=== PATIENT | female | born 1995 | race Caucasian/White ===

== ENCOUNTER → 2019-11-14 | Outpatient (CLI) | payer OTHER ==
[2019-11-14 19:26] LABS: HEMOGLOBIN 10.7 g/dl (12.0-15.5); MEAN CORPUSCULAR HGB CONC 31.5 g/dl (32.0-36.5); MEAN CORPUSCULAR VOLUME 95.2 fl (80.0-96.0); PLATELET COUNT, AUTOMATED 239 10^3/uL (150-450); RED BLOOD COUNT 3.57 10^6/uL (4.00-5.40); WHITE BLOOD COUNT 4.5 10^3/uL (4.0-10.0)
== END ==
LOC: M PLALAB 14:34
PROVIDERS: ATTEND Advanced Practice Midwife
DX: Z34.83 Encounter for supervision of other normal pregnancy, third trimester (principal)

== ENCOUNTER → 2019-12-04 | Outpatient (CLI) | payer OTHER ==
--- NOTE | 2019-12-04 12:19 | REP ---
Clinical: Anatomical evaluation. Comparison: None currently available . Findings: Examination demonstrates a single live intrauterine in cephalic presentation. motion is identified by technologist. Placenta is noted anterior and grade I without evidence for placenta previa or abruption. Amniotic fluid volume is normal. Cervix measures 4.1 cm in length and appears closed. No evidence for nuchal cord. Gestational age by current measurements 28 weeks of 4 days with MANUEL 02/22/2020 . FHR equals 150 beats per minute. Estimated weight 1315 grams ( 50th percentile). Anatomical assessment demonstrates normal structures including facial features, four-chamber heart, diaphragm, stomach, cord insertion/three-vessel cord, kidneys/bladder, and extremities. Impression: 1. Single live intrauterine in cephalic presentation demonstrating normal estimated weight. 2. Normal anatomical findings as described above.
== END ==
LOC: M WHC 11:28
PROVIDERS: ATTEND Advanced Practice Midwife
DX: Z36.2 Encounter for other antenatal screening follow-up (principal); Z3A.28 28 weeks gestation of pregnancy

== ENCOUNTER → 2020-01-14 | Outpatient (REF) | payer OTHER | LOC: M PLALAB 14:26 | PROVIDERS: ATTEND Advanced Practice Midwife | DX: Z34.83 Encounter for supervision of other normal pregnancy, third trimester (principal) ==

== ENCOUNTER 2020-02-08 03:19 | Inpatient (IN) | payer OTHER ==
[2020-02-08] VITALS (22 sets, daily range): BP systolic 94–128; BP diastolic 52–66
[~2020-02-08] VITALS: Ht 154.9 cm; Wt 89.8 kg
[2020-02-08] MEDS ORDERED: PRENTAB9 PO (03:33)
[2020-02-08 08:00] LABS: HEMATOCRIT 33.2 % (36.0-47.0); HEMOGLOBIN 10.5 g/dl (12.0-15.5); MEAN CORPUSCULAR HEMOGLOBIN 27.7 pg (27.0-33.0); MEAN CORPUSCULAR HGB CONC 31.6 g/dl (32.0-36.5); MEAN CORPUSCULAR VOLUME 87.6 fl (80.0-96.0); PLATELET COUNT, AUTOMATED 225 10^3/uL (150-450); RED BLOOD COUNT 3.79 10^6/uL (4.00-5.40); WHITE BLOOD COUNT 4.2 10^3/uL (4.0-10.0)
[2020-02-08] MEDS ORDERED: LACTATED RINGER'S 1000 ML IV STA (11:44)
[2020-02-08] MEDS ORDERED: OXYTOCIN DRIP 30 UNITS in IV 1 EA IV SCH ×2 (11:45→19:56)
[2020-02-08] MEDS ORDERED: LR 1,000 ML IV SCH (12:00)
--- NOTE | 2020-02-08 12:04 | HPEPDOC ---
Obstetrical History & Physical General Date of Admission Feb 08, 2020 at 07:30 Primary Care Physician: BRENDA FU CNM History of Present Illness Patient is a 24-year-old female who is a at 39.6 weeks gestation with an MANUEL of 02/09/20 based off of her first trimester ultrasound. She initiated care in her first trimester in [place] and transferred her care to [place] at [facility]. Her has been uncomplicated. She did have a positive quad screen and a negative NIPT test. She reports regular painful contractions and active movement. She denies leaking of fluid or vaginal bleeding. Chief Complaint: Active Labor Information Provided By: Patient Age: 24 : 2 Term: 1 Pre-term: 0 Abortions: 0 Livin Care Care: Good Care Dating Final EDC: Feb 09, 2020 Final EDC by: 1st trimester (US) EGA at Admission: 39.6 Antepartum Course Height (inches): 61 Pre- weight (lbs.): 152 Admission Weight (lbs.): 197 Change in Weight (lbs.): 45 Past Medical History Past Obstetrical History : Date of Delivery: Apr 07, 2018 Gestation: 39 Type of Delivery: Spontaneous Vaginal Del. Sex of Infant: Female (7 lbs 7 oz.) Complications: No PAPER STRIPPER History: No pertinent history Past Medical History Medical History No current medical history Surgical History: Denies/None Family History Significant Family History: Diabetes, Heart disease, Hypertension, Other (thyroid disease) Social History Marital Status: Family situation: Spouse/partner home Psychosocial History: No pertinent psych hx * Smoker: non-smoker Alcohol: Denies Drugs: denies Abuse Violence Screening Have you been hit/kicked/slapp: No Have you been sexually assault: No Allergies Coded Allergies: No Known Allergies (Unverified , 02/08/20) Medications Scheduled No.137/Iron/Folic Acd ( Vitamin Tablet) 1 Each Tablet, 1 TAB PO DAILY Physical Examination Physical Examination GENERAL: Alert and oriented times three. BREAST: . ABDOMEN: Gravid and non-tender to touch. FETUS: Is vertex (VTX) by sterile vaginal examination (SVE), fetus is vertex (VTX) by George. HEART RATE: Regular rate and rhythm. LUNGS: Clear to auscultation (CTA). EXTREMITIES: No edema. No clonus. Deep tendon reflexes (DTRs) + 2. Vital Signs/I&O Vital Signs Date Time Temp Pulse Resp B/P (MAP) Pulse Ox O2 Delivery O2 Flow Rate FiO2 02/08/20 10:26 81 18 108/54 (72) 02/08/20 07:08 97.8 98 Room Air Laboratory Data 24H LABS Laboratory Tests 2 02/08/20 07:52: Nucleated Red Blood Cells % (auto) 0.0 CBC/BMP Laboratory Tests 02/08/20 07:52 Urine Culture: Other (lactobacillus) Pertinent Laboratoy Data Blood Type: A+ RBC Antibody Screen: Negative HIV: Negative Hepatitis B: Negative Hepatitis C: Negative Rapid Plasma Reagin: Nonreactive Rubella: Immune Chlamydia/Gonorrhea: Negative Group B Streptococcus: Negative Quad Screen Test: Positive Glucose Tolerance Test: 95 Diag/Inter Therapy NIPT low risk normal female Vaginal Examination Dilation: 4 cm Effacement: other (75%) Station: Other (ballotable) Cervical Consistency: Soft Cervical Position: Anterior Presentation: Cephalic presentation Position: Vertex (occiput) Assessment Heart Rate (FHR): 140 Variability: Moderate Accelerations: Positive Decelerations: None Tocometer Contractions: Yes Frequency: irregular Multi-drug resistant Organism: No history of MDRO Assessment/Plan Assessment IUP at 39.6 weeks gestation Category I FHR tracing active labor GBS negative Plan Admit to L&D. OOB ad cecily Diet: regular then switch to clears with IV Pitocin started. Group B Streptococcus (GBS) negative. Labs and intravenous (IV) per unit protocol. Counseled on Pitocin for augmentation of labor (IOL). IV Pitocin to be started and LR to be started at 125 cc/hr. Anesthesia consult per patient's request Lactated Ringers (LR): Bolus 800 mL prior to epidural. Anticipate cervical change and . C-S as appropriate. BRENDA FU CNM Feb 08, 2020 12:04
--- NOTE | 2020-02-08 17:03 | IPNPDOC ---
Obstetrical Progress Note Date of Service Feb 08, 2020 Subjective Patient reports she is feeling her contractions. Objective Vital Signs Date Time Temp Pulse Resp B/P (MAP) Pulse Ox O2 Delivery O2 Flow Rate FiO2 02/08/20 16:22 97.9 76 16 101/56 (71) 02/08/20 07:08 98 Room Air Assessment Heart Rate (FHR): 140 Variability: Moderate Accelerations: Positive Decelerations: None Heart Rate Tracing: Category I Tocometer Contractions: Yes Frequency: regular (1.5 to 4 minutes), other (1.5-4 minutes) Strength: palpated as moderate Sterile Vaginal Examination Dilation: 4 cm (45 cm) Effacement (%): other (75%) Station: -2 Cervical Consistency: Soft Cervical Position: Middle Postion/Presentation: Cephalic presentation (confirmed with bedside ultrasound) Assessment and Plan Age: 24 Status: Reassuring Group B Streptococcus: Negative Anticipate: Vaginal Delivery Additional Comments AROM to a large amount of clear fluid. BRENDA FU CNM Feb 08, 2020 17:03
[2020-02-08] MEDS ORDERED: ACETAMINOPHEN 500 MG TAB PO PRN (20:00)
[2020-02-08] MEDS ORDERED: IBUPROFEN 800 MG TAB PO PRN (20:00)
[2020-02-08] MEDS ORDERED: DIBUCAINE 1% OINTMENT 30GM TOP PRN (20:00)
[2020-02-08] MEDS ORDERED: ACETAMINOPHEN TAB 650MG DOSE (2X325MG) PO PRN (20:00)
[2020-02-08] MEDS ORDERED: IBUPROFEN 600 MG TAB PO PRN (20:00)
[2020-02-08] MEDS ORDERED: METHYLERGONOVINE MALEATE 0.2 MG TAB PO PRN (20:00)
[2020-02-08] MEDS ORDERED: RHOGAM 300 MCG (1500 IU) INJ (J2790) IM SCH (20:00)
[2020-02-08] MEDS ORDERED: MEASLES,MUMPS,RUBELLA VACCINE INJ (MMR-II) (90707) SC SCH (20:00)
[2020-02-08] MEDS ORDERED: DOCUSATE SODIUM 100 MG CAP PO PRN (20:00)
[2020-02-08] MEDS ORDERED: LIDOCAINE 1% MDV 20ML VIAL INFIL ONE (20:15)
--- NOTE | 2020-02-08 20:19 | DNPDOC ---
[facility] Delivery Note Delivery Note DATE OF DELIVERY: 02/08/20 at 1927 PREDELIVERY DIAGNOSIS: 39-6/7 weeks' gestation and labor. POST DELIVERY DIAGNOSIS: Delivered. PROCEDURE: Spontaneous vaginal delivery. CHIROPRACTIC PRACTICE MANAGER: Brenda Jimenes CNM, LEWIS ANESTHESIA: none. ESTIMATED BLOOD LOSS: 350 mL. FINDINGS: 7 pounds 2 ounces; 3240 grams; female infant, Score 9/9. DELIVERY SUMMARY: Patient is a 63-cdup-ixl-female who is now a at 39.6 weeks gestation who presented in active labor. Her labor was augmented with IV Pitocin. She progressed to fully dilated at 1926 and pushed to a living female a t 1926. This was a nurse controlled delivery after the patient came back from urinating. Provider presented when was on maternal abdomen active and crying. The cord was clamped x2 and cut by the provider. The placenta delivered spontaneously and intact at 1932. Uterine hemostasis was achieved via rapid infusion of IV Pitocin and fundal massage. The vagina, perineum, and cervix was inspected and found to have a first degree perineal laceration that was repaired with a 3.[address]-1 using 1% Lidocaine. Mom plans to formula feed and breast feed her . they are naming her Kayla. All counts of instruments and sponges are correct. Both mom and baby are in stable condition. BRENDA JIMENES CNM Feb 08, 2020 20:19
[2020-02-09 06:00] VITALS: BP 119/67
[2020-02-09] MEDS: PRENATAL VITAMINS CHEWABLE TABLET PO SCH (08:21)
--- NOTE | 2020-02-09 11:58 | IPNPDOC ---
Progress Note Date of Service: Feb 09, 2020 Day#: 1 Progress Note SUBJECT: Patient is a 24-year-old female who is day 1 from an uncom plicated vaginal delivery. She had a laceration without complications. She has been ambulating, voiding spontaneously without issue and tolerating regular diet. Breast feeding and formula feeding. OBJECTIVE: VITAL SIGNS: Within normal limits, afebrile. Alert and oriented times three. Breath sounds clear to auscultation. Heart rate: Regular rate and rhythm, no murmurs, rubs or gallops. Abdomen: Fundus firm at U-1. Soft, NTTP. Minimal lochia. ASSESSMENT: Day 1 PLAN: 1. Anticipate discharge to home tomorrow. 2. Tylenol and Motrin for pain. 3. Encourage breast feeding and ambulation. VS, I&O, 24H, Fishbone Vital Signs/I&O Vital Signs Date Time Temp Pulse Resp B/P (MAP) Pulse Ox O2 Delivery O2 Flow Rate FiO2 02/09/20 06:00 98.6 85 17 119/67 (84) 97 Room Air I&O- Last 24 Hours up to 6 AM 02/09/20 06:00 Intake Total 1934 ml Output Total 1250 ml Balance 684 ml Laboratory Data 24H LABS Laboratory Tests 2 02/08/20 12:08: Serology Scanned Report Hepatitis B Testing BRENDA FU CNM Feb 09, 2020 11:58
[2020-02-09 17:56] VITALS: BP 105/57
[2020-02-10 06:10] VITALS: BP 117/59
[2020-02-10] MEDS ORDERED: IBUP80TA PO (07:24)
[2020-02-10] MEDS ORDERED: ACET-683 PO (07:24)
[2020-02-10] MEDS: PRENATAL VITAMINS CHEWABLE TABLET PO SCH (08:42)
== END 2020-02-10 11:00 | disposition home or self-care (01) | DRG 807 ==
LOC: M LDO 03:19 → EEVIPCON 03:19 → M LDI 07:30 → M OBS 21:49
PROVIDERS: ADMIT Advanced Practice Midwife; ATTEND Advanced Practice Midwife
PROC: 10E0XZZ Delivery of Products of Conception, External Approach (ICD-10-PCS; principal; 2020-02-08)
PROC: 10907ZC Drainage of Amniotic Fluid, Therapeutic from Products of Conception, Via Natural or Artificial Opening (ICD-10-PCS; 2020-02-08)
PROC: 0HQ9XZZ Repair Perineum Skin, External Approach (ICD-10-PCS; 2020-02-08)
DX: O70.0 First degree perineal laceration during delivery (principal); Z37.0 Single live birth; Z3A.39 39 weeks gestation of pregnancy

== ENCOUNTER 2020-05-14 10:35 | Day surgery (SDC) | payer OTHER ==
[~2020-05-14 10:35] MED LIST: ACET-683 PO; HYDROmorphone HCL 2 MG/ML 1ML VIAL (J1170) As Ordered ONE; IBUP80TA PO; KETOROLAC 60MG 2ML VIAL As Ordered ONE; LIDOCAINE 2% 100MG/5ML SDV (FOR ANES.) As Ordered ONE; MIDAZOLAM INJ 2MG/2ML VIAL (J2250 PER 1MG) As Ordered ONE; ONDANSETRON 4MG/2ML VIAL As Ordered ONE; PRENTAB9 PO; ROCURONIUM BROMIDE 50 MG/5 ML VIAL As Ordered ONE; dexameTHASONE 4 MG/ML 1ML VIAL (J1100 PER 1MG) As Ordered ONE; fentaNYL 100 MCG/2 ML INJECTION (J3010) As Ordered ONE; propofoL 200 MG/20 ML VIAL As Ordered ONE
[2020-05-14] MEDS ORDERED: BUPIVACAINE HCL 0.25% 10ML VIAL As Ordered ONE (11:15)
[2020-05-14] MEDS ORDERED: SUGAMMADEX SODIUM 500 MG/5 ML VIAL (BRIDION) As Ordered ONE (11:45)
[2020-05-14] MEDS ORDERED: ACETAMINOPHEN 1000MG 100ML IV BTL (OFIRMEV) (J0131 PER 10MG) As Ordered ONE (11:45)
[2020-05-14] MEDS ORDERED: SILVER NITRATE APPLICATOR As Ordered ONE (12:13)
[2020-05-14] MEDS ORDERED: ONDANSETRON 4MG/2ML VIAL ONE (13:44)
[2020-07-04 23:00] LABS: HEMATOCRIT 37.5 % (36.0-47.0); HEMOGLOBIN 11.8 g/dl (12.0-15.5); MEAN CORPUSCULAR HEMOGLOBIN 28.2 pg (27.0-33.0); MEAN CORPUSCULAR HGB CONC 31.5 g/dl (32.0-36.5); MEAN CORPUSCULAR VOLUME 89.7 fl (80.0-96.0); PLATELET COUNT, AUTOMATED 280 10^3/uL (150-450); RED BLOOD COUNT 4.18 10^6/uL (4.00-5.40); WHITE BLOOD COUNT 3.4 10^3/uL (4.0-10.0)
--- NOTE | 2020-07-22 09:23 | RO ---
Date of Operation: 05/14/2020 Pre-op diagnosis: Satisfied parity. Post-op diagnosis: Satisfied parity. Procedure: Laparoscopic bilateral opportunistic salpingectomy. Surgeon: Jovani Odom DO Camelid Fiber Sorter: None. Anesthesia: General endotracheal. Specimens sent to pathology: Bilateral fallopian tubes. Estimated blood loss: 10 mL Fluids replaced: 1.2 liters lactated Ringers. Drains: In-and-out catheter, 50 mL. Complications: None. Preoperative Antibiotics: None indicated. Intraoperative findings: Normal uterus, bilateral adnexa and ovaries. Indication: The patient is 100% satisfied libertarian and she has been counseled on all available control method options. She has elected to proceed with tubal sterilization. Description of Operation: The patient was counseled, consented on the risks, benefits, indications and alternatives of the procedure and informed consent was obtained. She was taken to the operating room with an IV running and placed on the operating table in dorsal supine position. General anesthesia was administered and the airway secured without any difficulty. She was then placed in the dorsal supine, low lithotomy position. She was prepared and draped in normal sterile fashion. A timeout was performed per protocol. The bladder was drained with sterile in-and-out catheter. A sterile speculum was placed with good visualization of the cervix. A single-tooth tenaculum was used to grasp the anterior lip of the cervix and downward traction was applied. A ZUMI uterine manipulator was placed without any difficulty. The single-tooth tenaculum was removed. Attention was turned to the abdomen after a glove switch was performed. 1/4% Marcaine was injected into the umbilicus. An 11 blade was used to create a 5 mm incision in the umbilicus. Through this incision, a Veress needle was placed into the intraperitoneal cavity. Intraperitoneal placement was confirmed with ease of flow of normal saline, positive drop test and negative return on aspiration. The abdomen was insufflated with two liters of gas. The opening pressure was 3 mmHg. The Veress needle was removed. The size 5 mm laparoscopic XL trocar/cannula was introduced into the intraperitoneal cavity without any incidental bleeding or injury. The patient was then placed in steep Trendelenburg. Two additional incisions were made in the left lower abdomen 5 mm each with the 11 blade and through these incisions, the laparoscopic trocar/cannulas were inserted under direct visualization without any difficulty. Attention was first turned to the right fallopian tube. The right fallopian tube was followed out to the fimbriated end and grasped and elevated. The underlying mesosalpinx was sequentially clamped, coagulated and transected using the 5 mm LigaSure device until the level of the cornua was reached and at the level of the cornua, the fallopian tube clamped, coagulated, transected, thus amputating the right fallopian tube. The right fallopian tube was brought through the 8 mm cannula and the specimen was sent to pathology for permanent section. In similar fashion, the left fallopian tube was identified and followed out to the fimbriated end. The left fallopian tube was grasped and elevate. The underlying mesosalpinx was sequentially clamped, coagulated and transected until the level of the cornua was reached. At the level of the cornua, the fallopian tube clamped, coagulated and transected, thus amputating the left fallopian tube. The left fallopian tube was brought through the 8 mm cannula and sent to pathology for permanent section. Left and right surgical sites were inspected and noted to be completely hemostatic. The gas was released from the abdomen. The patient was taken out of Trendelenburg. The cannulas were removed. The skin incisions were closed with 4-0 Monocryl in subcuticular fashion and reinforced with Dermabond. Attention was turned back to the vagina. A sterile speculum was placed. The ZUMI uterine manipulator was removed. There was a small minor laceration on the cervix from the single-tooth tenaculum. A single interrupted stitch using 3-0 Vicryl was used to correct this defect and excellent hemostasis was noted. The speculum was then removed. Sponge, needle and instrument counts were correct per protocol. The patient tolerated the entire procedure well. She was transferred to the PACU in good and stable condition. NITESH
== END 2020-05-14 14:35 | disposition home or self-care (01) ==
LOC: M SDC 10:35
PROVIDERS: ATTEND Obstetrics & Gynecology
DX: Z30.2 Encounter for sterilization (principal); K21.9 Gastro-esophageal reflux disease without esophagitis; Z79.899 Other long term (current) drug therapy
CPT/HCPCS: 58661; 85027; 86850; 86900; 86901; 88302; J0131; J1100; J1170; J1885; J2250; J2405; J3010

== ENCOUNTER → 2020-11-08 | Outpatient (CLI) | payer SELFPAY ==
[~2020-11-08] MED LIST changes: -HYDROmorphone HCL 2 MG/ML 1ML VIAL (J1170) As Ordered ONE; -KETOROLAC 60MG 2ML VIAL As Ordered ONE; -LIDOCAINE 2% 100MG/5ML SDV (FOR ANES.) As Ordered ONE; -MIDAZOLAM INJ 2MG/2ML VIAL (J2250 PER 1MG) As Ordered ONE; -ONDANSETRON 4MG/2ML VIAL As Ordered ONE; -ROCURONIUM BROMIDE 50 MG/5 ML VIAL As Ordered ONE; -dexameTHASONE 4 MG/ML 1ML VIAL (J1100 PER 1MG) As Ordered ONE; -fentaNYL 100 MCG/2 ML INJECTION (J3010) As Ordered ONE; -propofoL 200 MG/20 ML VIAL As Ordered ONE
== END ==
LOC: M LABSMTC 12:51
PROVIDERS: ATTEND Pediatrics
DX: Z20.822 Contact with and (suspected) exposure to COVID-19 (principal)

== ENCOUNTER → 2023-03-13 | Outpatient (REF) | payer OTHER ==
[2023-03-13 14:39] LABS: BASO % 0.8 % (0.0-1.0); EOS # 0.4 10^3/uL (0.0-0.5); EOS % 11.3 % (0.0-3.0); HEMATOCRIT 39.2 % (36.0-47.0); HEMOGLOBIN 12.7 g/dl (12.0-15.5); LYMPH # 2.4 10^3/uL (1.5-5.0); LYMPH % 61.8 % (24.0-44.0); MEAN CORPUSCULAR HEMOGLOBIN 28.8 pg (27.0-33.0); MEAN CORPUSCULAR HGB CONC 32.4 g/dl (32.0-36.5); MEAN CORPUSCULAR VOLUME 88.9 fl (80.0-96.0); MONO # 0.7 10^3/uL (0.0-0.8); MONO % 16.7 % (2.0-8.0); NEUTROPHILS % 9.4 % (36.0-66.0); PLATELET COUNT, AUTOMATED 280 10^3/uL (150-450); RED BLOOD COUNT 4.41 10^6/uL (4.00-5.40); WHITE BLOOD COUNT 3.9 10^3/uL (4.0-10.0)
[2023-03-13 14:56] LABS: HEMOGLOBIN A1c 5.1 % (4.0-6.0)
[2023-03-13 14:57] LABS: ALKALINE PHOSPHATASE 59 U/L (46-116); ALT/SGPT 21 U/L (7.0-40); AST/SGOT < 8 U/L (<34); BILIRUBIN,TOTAL 0.4 MG/DL (0.3-1.2); BLOOD UREA NITROGEN 11 MG/DL (9-23); CALCIUM LEVEL 8.4 MG/DL (8.5-10.1); CARBON DIOXIDE LEVEL 28 MMOL/L (20-31); CHLORIDE LEVEL 105 MMOL/L (98-107); CHOLESTEROL LEVEL 156 MG/DL (<200); CHOLESTEROL RISK RATIO 5.53 (<5); CREATININE FOR GFR 0.79 MG/DL (0.55-1.30); GLOMERULAR FILTRATION RATE > 60.0 (>60); GLUCOSE, FASTING 92 MG/DL (60-100); HDL CHOLESTEROL 28.2 MG/DL (>40); LDL CHOLESTEROL 94.8 MG/DL (<100); NON-HDL-C 127.8 MG/DL; SODIUM LEVEL 140 MMOL/L (136-145); TOTAL PROTEIN 6.9 G/DL (5.7-8.2); TRIGLYCERIDES LEVEL 165 MG/DL (<150)
[2023-03-13 14:58] LABS: TOTAL 25(OH) VITAMIN D 34.7 NG/ML (20.0-100.0)
[2023-03-13 15:00] LABS: THYROID STIMULATING HORMONE 3.337 uIU/ML (0.55-4.78)
[2023-03-13 15:44] LABS: NEUTROPHILS # 0.4 10^3/uL (1.5-8.5)
== END ==
LOC: M LAB REF 13:41
PROVIDERS: ATTEND Nurse Practitioner Family
DX: E66.3 Overweight (principal); E55.9 Vitamin D deficiency, unspecified; R53.83 Other fatigue; Z11.9 Encounter for screening for infectious and parasitic diseases, unspecified

== ENCOUNTER → 2023-03-22 | Outpatient (REF) | payer OTHER ==
[~2023-03-22] MED LIST changes: +CLAR10CA3 PO; +VITA200032
[2023-03-22 13:42] LABS: BASO % 1.1 % (0.0-1.0); EOS # 0.4 10^3/uL (0.0-0.5); EOS % 9.4 % (0.0-3.0); HEMATOCRIT 40.6 % (36.0-47.0); LYMPH # 2.3 10^3/uL (1.5-5.0); LYMPH % 60.6 % (24.0-44.0); MEAN CORPUSCULAR HEMOGLOBIN 28.6 pg (27.0-33.0); MEAN CORPUSCULAR VOLUME 89.4 fl (80.0-96.0); MONO # 0.7 10^3/uL (0.0-0.8); NEUTROPHILS % 10.9 % (36.0-66.0); PLATELET COUNT, AUTOMATED 279 10^3/uL (150-450); RED BLOOD COUNT 4.54 10^6/uL (4.00-5.40); WHITE BLOOD COUNT 3.7 10^3/uL (4.0-10.0)
[2023-03-22 15:20] LABS: NEUTROPHILS # 0.4 10^3/uL (1.5-8.5)
== END ==
LOC: M LAB REF 12:23
PROVIDERS: ATTEND Nurse Practitioner Family
DX: R89.9 Unspecified abnormal finding in specimens from other organs, systems and tissues (principal)

== ENCOUNTER 2023-05-10 13:30 | Emergency (ER) | payer OTHER ==
[~2023-05-10] VITALS: Ht 154.9 cm; Wt 79.9 kg
[2023-05-10 13:32] VITALS: BP 127/94; TEMP 97.9; O2SAT 99
[2023-05-10] MEDS ORDERED: ACET1TAB55 PO (13:46)
== END 2023-05-10 16:30 | disposition left against medical advice (07) ==
LOC: M ED 13:30
DX: R51.9 Headache, unspecified (principal); R20.2 Paresthesia of skin; Z79.899 Other long term (current) drug therapy